=== PATIENT | female | born 1970 | race African-American/Black ===

== ENCOUNTER 2017-02-01 13:46 | Emergency (ER) | payer OTHER ==
[~2017-02-01] VITALS: Ht 177.8 cm; Wt 65.8 kg
--- NOTE | ~2017-02-01 | EKG ---
[place] [address] [facility] [place] [place] [address] ELECTROCARDIOGRAM REPORT Name: GRAY PRESTON Room #: [facility]#: [id number] Admission: 02/01/17 Attend Phys: Discharge: 02/01/17 Date of : 70 Report #: [id number] THIS REPORT FOR: //name// [facility] ED Test Date: 2017-02-01 Test Time: 13:55:20 Pat Name: GRAY PRESTON Department: Room: Gender: F [employer]: MARK : 1970 Requested By: Karla Almanzar Order Number: [id number] MD: Marshal Dale Measurements Intervals [place] Rate: 83 P: 49 OR: 142 QRS: -22 QRSD: 96 T: 56 QT: 360 QTc: 423 Interpretive Statements Sinus rhythm Nonspecific ST segment abnormality Borderline left axis deviation Compared to ECG 07/18/2005 18:03:27 No significant changes Electronically Signed On 02-02-2017 8:39:52 CDT by Marshal Dale [email or web address] <ELECTRONICALLY SIGNED> By: Marshal Dale MD, [facility] 02/02/17 [id number] Marshal Dale MD, FACC /EPI
[~2017-02-01 13:46] MED LIST: ADVIL200 M2 PO; FLEXERIL PO; NORCO 5-325 TA1 EACH PO
[2017-02-01 14:16] LABS: ABSOLUTE NEUTROPHILS 4.6 thou/uL (1.4-8.2); BASOPHILS 0.5 % (0.0-2.0); HEMATOCRIT 35.8 % (37.0-47.0); HEMOGLOBIN 12.1 gm/dL (12.0-15.0); MCH 27.4 pg (26.0-34.0); MCHC 33.8 g/dL (28.0-37.0); MCV 81.2 fL (80.0-100.0); MONOCYTES 7.6 % (1.0-8.0); PLATELET COUNT 280 thou/uL (150-400); POLYS 60.9 % (36.0-66.0); RDW 18.3 % (10.5-14.5); WBC 7.5 thou/uL (4.0-11.0)
[2017-02-01 14:18] LABS: MANUAL DIFF NO
[2017-02-01 15:01] LABS: ALBUMIN 3.6 g/dL (3.4-5.0); ALKALINE PHOSPHATASE 60 U/L (46-116); ANION GAP 9 mmol/L (7-16); BUN 9 mg/dL (7-18); CALCIUM 8.6 mg/dL (8.5-10.1); CHLORIDE 105 mmol/L (98-107); CO2 24 mmol/L (21-32); CREATININE 0.5 mg/dL (0.6-1.0); GLUCOSE 90 mg/dL (74-106); SGOT 21 U/L (15-37); SGPT 14 U/L (30-65); SODIUM 138 mmol/L (136-145); TOTAL BILIRUBIN 0.4 mg/dL (<0.1-1.0); TOTAL PROTEIN 6.8 g/dL (6.4-8.2); TROPONIN-I < 0.04 ng/mL (<0.04-0.07)
[2017-02-01 15:05] LABS: POTASSIUM 4.1 mmol/L (3.5-5.1)
[2017-02-01 15:27] VITALS: BP 122/80
== END 2017-02-01 15:28 | disposition home or self-care (01) ==
LOC: ER 13:46
PROVIDERS: Nurse Practitioner Family
DX: R07.89 Other chest pain (principal); F10.99 Alcohol use, unspecified with unspecified alcohol-induced disorder; F12.10 Cannabis abuse, uncomplicated; Z98.890 Other specified postprocedural states; Z71.1 Person with feared health complaint in whom no diagnosis is made